=== PATIENT | female | born 1980 | race Caucasian/White ===

== ENCOUNTER 2018-07-02 17:13 | Emergency (ER) | payer MEDICAID ==
[~2018-07-02] VITALS: Ht 175.3 cm; Wt 193.2 kg
[~2018-07-02 17:13] MED LIST: ABILIFY20 MG; ALDACTONE 100M100 MG PO; BUSPAR DIVIDOSE15 MG PO; BUSPAR10 MG PO; DEPAKOTE500 MG PO; DIPHENHYDRAMINE25 M1 PO; MULTIPLE VITAMI1 CAP PO; NEXIUM 20MG CAP20 MG PO; NO HOME MEDICATIONS; PREDNISONE10 MG PO; PROZAC 10MG10 MG PO; PROZAC40 MG PO; SYNTHROID0.075 MG/T PO; SYNTHROID0.1 MG/TAB PO; ZYPREXA15 MG PO; [UNRECOGNIZED DRUG - OTHER]
[2018-07-02 18:02] LABS: BASO % 0.3 % (0.0-2.0); EOS # 0.4 (0.0-0.7); EOS % 3.8 % (0-4.0); GRAN # 7.5 (1.4-6.5); HEMATOCRIT 36.2 % (37.0-47.0); HEMOGLOBIN 10.9 g/dl (12.5-16.0); LYMPH # 2.4 (1.2-3.4); MEAN CELL VOLUME 79 fl (80.0-100.0); MEAN CORPUSCULAR HEMOGLOBIN 24 pg (27.0-31.0); MEAN CORPUSCULAR HGB CONC 30 g/dl (33.0-37.0); MEAN PLATELET VOLUME 9.4 fl (7.4-10.4); MONO # 0.6 (0.1-0.6); MONO % 5.5 % (1.7-9.3); PLATELET COUNT 454 K/mm3 (130-400); RED BLOOD COUNT 4.57 M/mm3 (4.10-5.30)
[2018-07-02 18:10] LABS: ACETAMINOPHEN < 10 ug/mL (10-30); ALANINE AMINOTRANSFERASE 47 U/L (9-52); ALCOHOL(ethanol),MEDICAL < 10 mg/dL; ALKALINE PHOSPHATASE 110 U/L (50-136); ANION GAP 11 mmol/L (7-16); AST,SGOT 43 U/L (15-37); BILIRUBIN,TOTAL 0.3 mg/dL (0.0-1.0); BLOOD UREA NITROGEN 7 mg/dL (7-17); CALCIUM 8.7 mg/dL (8.4-10.2); CARBON DIOXIDE 26 mmol/L (22-30); CHLORIDE 99 mmol/L (98-107); CREATININE, serum 0.78 mg/dL (0.52-1.25); GLUCOSE 98 mg/dL (74-106); POTASSIUM 3.7 mmol/L (3.4-5.0); SALICYLATE < 1.0 mg/dL; SODIUM 136 mmol/L (137-145); TOTAL PROTEIN 7.8 gm/dL (6.4-8.2)
[2018-07-02 18:16] LABS: COLLECTION METHOD CATHETER
[2018-07-02 18:22] LABS: MUCOUS Present /lpf; PH 6 (5-8); SQUAMOUS EPITHELIAL 0-2 /hpf; URINE APPEARANCE Clear; URINE BACTERIA None Seen /hpf; URINE BILIRUBIN Negative (NEGATIVE); URINE BLOOD 1+ (NEGATIVE); URINE COLOR Yellow; URINE GLUCOSE Negative (NEGATIVE); URINE KETONE Negative (NEGATIVE); URINE LEUKOCYTE ESTERASE Negative (NEGATIVE); URINE NITRATE Negative (NEGATIVE); URINE PROTEIN(semi-quant) Negative (NEGATIVE); URINE RBC None Seen /hpf; URINE UROBILINOGEN Negative (NEGATIVE)
[2018-07-02 18:38] LABS: TRICYCLIC ANTIDEPRESS URINE NEGATIVE
[2018-07-02 21:55] VITALS: BP 118/79; PULSE 82; TEMP 99.3
== END 2018-07-02 22:34 | disposition home or self-care (01) ==
LOC: COL.ER 17:13
PROVIDERS: Physician Assistant
DX: R45.851 Suicidal ideations (principal); R45.850 Homicidal ideations; I10 Essential (primary) hypertension; F31.9 Bipolar disorder, unspecified; F41.0 Panic disorder [episodic paroxysmal anxiety]

== ENCOUNTER 2019-05-28 15:22 | Emergency (ER) | payer MEDICAID ==
[~2019-05-28] VITALS: Ht 175.3 cm; Wt 152.3 kg
[2019-05-28 15:25] VITALS: TEMP 97
[2019-05-28] MEDS ORDERED: ALDACTONE50 MG PO (15:35)
[2019-05-28] MEDS ORDERED: DESYREL 50MG50 MG PO (15:35)
[2019-05-28] MEDS ORDERED: ABILIFY 15MG TA15 MG PO (15:36)
[2019-05-28 16:09] LABS: COLLECTION METHOD CLEAN CATCH
[2019-05-28] MEDS ORDERED: SYNTHROID0.112 MG/T PO (16:14)
[2019-05-28 16:21] LABS: HYALINE CAST >12 /lpf; MUCOUS Present /lpf; PH 5 (5-8); URINE APPEARANCE Hazy; URINE BACTERIA Rare /hpf; URINE BILIRUBIN Negative (NEGATIVE); URINE BLOOD Negative (NEGATIVE); URINE COLOR Amber; URINE GLUCOSE Negative (NEGATIVE); URINE KETONE Trace (NEGATIVE); URINE LEUKOCYTE ESTERASE Negative (NEGATIVE); URINE NITRATE Negative (NEGATIVE); URINE PROTEIN(semi-quant) 1+ (NEGATIVE); URINE RBC 0-2 /hpf; URINE UROBILINOGEN >=4.0 mg/dL (NEGATIVE)
[2019-05-28 16:31] LABS: BASO % 0.2 % (0.0-2.0); EOS # 0.2 (0.0-0.7); EOS % 0.9 % (0-4.0); GRAN # 14.9 (1.4-6.5); GRAN % 84.4 % (42.2-75.2); HEMATOCRIT 41.7 % (37.0-47.0); HEMOGLOBIN 12.3 g/dl (12.5-16.0); LYMPH # 1.6 (1.2-3.4); LYMPH % 9.3 % (20.0-51.0); MEAN CELL VOLUME 84 fl (80.0-100.0); MEAN CORPUSCULAR HEMOGLOBIN 25 pg (27.0-31.0); MEAN CORPUSCULAR HGB CONC 30 g/dl (33.0-37.0); MEAN PLATELET VOLUME 9.2 fl (7.4-10.4); MONO # 0.9 (0.1-0.6); MONO % 4.8 % (1.7-9.3); PLATELET COUNT 494 K/mm3 (130-400); RED BLOOD COUNT 4.99 M/mm3 (4.10-5.30); REDCELL DISTRIBUTION WIDTH-CV 15.9 % (11.5-14.5)
[2019-05-28 16:48] LABS: ALANINE AMINOTRANSFERASE 209 U/L (9-52); ALBUMIN 4.1 gm/dL (3.5-5.0); ALKALINE PHOSPHATASE 231 U/L (50-136); ANION GAP 12 mmol/L (7-16); AST,SGOT 400 U/L (15-37); BILIRUBIN,TOTAL 0.7 mg/dL (0.0-1.0); BLOOD UREA NITROGEN 14 mg/dL (7-17); CALCIUM 9.2 mg/dL (8.4-10.2); CARBON DIOXIDE 30 mmol/L (22-30); CHLORIDE 98 mmol/L (98-107); CREATININE, serum 0.89 (0.52-1.25); GLUCOSE 155 mg/dL (74-106); POTASSIUM 3.7 mmol/L (3.4-5.0); SODIUM 141 mmol/L (137-145); TOTAL PROTEIN 8.1 gm/dL (6.4-8.2)
[2019-05-28 16:55] LABS: TROPONIN-I < 0.012 ng/mL (0.000-0.035)
[2019-05-28 17:20] LABS: LIPASE 33244 U/L (23-300)
[2019-05-28 20:29] VITALS: BP 123/70; PULSE 67
== END 2019-05-28 20:30 | disposition short-term general hospital (02) ==
LOC: COL.ER 15:22 → SURG 18:20 → COL.ER 20:30
PROVIDERS: Emergency Medicine
DX: K80.50 Calculus of bile duct without cholangitis or cholecystitis without obstruction (principal); K85.10 Biliary acute pancreatitis without necrosis or infection; F60.3 Borderline personality disorder; F31.9 Bipolar disorder, unspecified
CPT/HCPCS: J1170; J2405; J2543; J2550; J7030; Q9967